=== PATIENT | female | born 1970 | race Caucasian/White ===

== ENCOUNTER 2017-12-02 01:06 | Emergency (ER) | payer MEDICAID ==
[~2017-12-02] VITALS: Ht 160 cm; Wt 95.0 kg
[2017-12-02 03:16] LABS: BASOPHILS % 0.7 % (0.0-2.0); CHLORIDE 102 mEq/L (98-107); EOSINOPHILS % 2.8 % (0.0-5.0); HEMATOCRIT. 35.4 % (36.0-48.0); HEMOGLOBIN. 11.4 g/dL (12.0-16.0); LYMPHOCYTES % 24.9 % (20.0-50.0); MEAN CORPUSCULAR HEMOGLOBIN 26.2 pg (28.0-32.0); MEAN CORPUSCULAR VOLUME 81.4 fL (81.0-99.0); MEAN PLATELET VOLUME 8.9 fl (7.4-10.4); MONOCYTES % 6.3 % (2.0-8.0); NEUTROPHILS % 65.3 % (40.0-76.0); PLATELET 383 x1000/uL (130-400); RED BLOOD CELL COUNT 4.35 mill/uL (4.2-5.4); RED CELL DISTRIBUTION WIDTH 17.2 % (11.6-14.6)
[2017-12-02 03:20] LABS: PROTHROMBIN TIME 10.2 sec (9.1-11.1)
[2017-12-02] MEDS ORDERED: MAGNESIUM/ALUMINUM HYDROXIDE/SIMETHICONE 30ML UDC PO ONE (03:30)
[2017-12-02] MEDS ORDERED: ONDANSETRON HCL 4MG/2ML VIAL IV ONE (03:30)
[2017-12-02] MEDS ORDERED: FAMOTIDINE 20MG/2ML VIAL IV ONE (03:30)
[2017-12-02] MEDS ORDERED: SODIUM CHLORIDE 0.9% 1,000 ML IV ONE (03:30)
[2017-12-02 05:05] LABS: CLARITY URINE CLEAR (CLEAR); COLOR URINE YELLOW (YELLOW); KETONES URINE NEGATIVE (NEGATIVE); LEUKOCYTE ESTERASE URINE NEGATIVE (NEGATIVE); NITRITE URINE NEGATIVE (NEGATIVE); OCCULT BLOOD URINE NEGATIVE (NEGATIVE); PH URINE 8.5 (4.5-8.0); PROTEIN URINE NEGATIVE (NEGATIVE); SPECIFIC GRAVITY URINE 1.021 (1.005-1.030)
[2017-12-02 06:00] VITALS: BP 155/86
== END 2017-12-02 06:25 | disposition home or self-care (01) ==
LOC: ER 01:06
DX: R10.13 Epigastric pain (principal); I10 Essential (primary) hypertension; Z90.49 Acquired absence of other specified parts of digestive tract
CPT/HCPCS: 36415; 80053; 81003; 81025; 83690; 85025; 85610; 96374; 96375; 99284; J2405; J3490; J7030

== ENCOUNTER 2023-02-04 18:08 | Emergency (ER) | payer MEDICAID ==
[~2023-02-04] VITALS: Ht 167.6 cm; Wt 81.0 kg
[~2023-02-04 18:08] MED LIST: TOPUD PO
[2023-02-04 18:11] VITALS: O2SAT 99
[2023-02-04] MEDS ORDERED: SODIUM CHLORIDE 0.9% 1,000 ML IV NR (19:00)
[2023-02-04] MEDS ORDERED: FAMOTIDINE 20MG/2ML VIAL IV NR (19:00)
[2023-02-04] MEDS ORDERED: MELOXICAM 7.5MG TABLET PO NR (19:00)
[2023-02-04] MEDS ORDERED: ONDANSETRON HCL 4MG/2ML INJ IM NR (19:15)
[2023-02-04 20:00] LABS: BASOPHILS % 0.6 % (0.0-2.0); EOSINOPHILS % 4.5 % (0.0-5.0); HEMATOCRIT. 32.3 % (36.0-48.0); HEMOGLOBIN. 10.5 g/dL (12.0-16.0); LYMPHOCYTES % 19.3 % (20.0-50.0); MEAN CORPUSCULAR HEMOGLOBIN 27.1 pg (28.0-32.0); MEAN CORPUSCULAR HGB CONC 32.6 g/dL (31.0-37.0); MEAN PLATELET VOLUME 7.3 fl (7.4-10.4); MONOCYTES % 6.2 % (2.0-8.0); NEUTROPHILS % 69.4 % (40.0-76.0); PLATELET 400 x1000/uL (130-400); RED BLOOD CELL COUNT 3.89 mill/uL (4.2-5.4); RED CELL DISTRIBUTION WIDTH 14.6 % (11.6-14.6)
[2023-02-04 20:03] LABS: CLARITY URINE CLEAR (CLEAR); COLOR URINE YELLOW (YELLOW); GLUCOSE URINE NEGATIVE (NEGATIVE); KETONES URINE NEGATIVE (NEGATIVE); LEUKOCYTE ESTERASE URINE NEGATIVE (NEGATIVE); NITRITE URINE NEGATIVE (NEGATIVE); OCCULT BLOOD URINE NEGATIVE (NEGATIVE); PH URINE 6.5 (4.5-8.0); PROTEIN URINE NEGATIVE (NEGATIVE); SPECIFIC GRAVITY URINE 1.005 (1.005-1.030); UROBILINOGEN URINE 0.2 E.U./dL (0.2-1.0)
[2023-02-04 20:11] LABS: CHLORIDE 108 mEq/L (98-107); INDEX HEMOLYSI 1 (1-3); INDEX ICTERIC 1 (1-4); INDEX LIPEMIC 1 (1-3); POTASSIUM 3.9 mEq/L (3.5-5.1); SODIUM 138 mEq/L (136-145)
[2023-02-04 20:23] LABS: ALANINE AMINOTRANSFERASE 37 IU/L (13-61); ALBUMIN 3.5 g/dL (3.4-5.0); ASPARTATE AMINOTRANSFERASE 19 IU/L (15-37); BILIRUBIN TOTAL 0.3 mg/dL (0.1-1.0); CALCIUM 8.7 mg/dL (8.5-10.1); CARBON DIOXIDE 26 mEq/L (21-32); CREATININE 0.7 mg/dL (0.6-1.3); ETHANOL BLOOD < 10 mg/dL (<10); GLUCOSE 102 mg/dL (70-105); PROTEIN TOTAL 8.2 g/dL (6.0-8.3); UREA NITROGEN BLOOD 10 mg/dL (7-21)
[2023-02-04 20:23] LABS: *AMPHETAMINES SCREEN URINE NEGATIVE (NEGATIVE); *BARBITURATES SCREEN URINE NEGATIVE (NEGATIVE); *BENZODIAZEPINES SCREEN URINE NEGATIVE (NEGATIVE); *COCAINE SCREEN URINE NEGATIVE (NEGATIVE); CANNABINOID URINE SCREEN NEGATIVE (NEGATIVE); ECSTASY MDMA SCREEN URINE NEGATIVE (NEGATIVE); OPIATES URINE SCREEN NEGATIVE (NEGATIVE); PHENCYCLIDINE URINE SCREEN NEGATIVE (NEGATIVE)
[2023-02-05 00:31] VITALS: BP 125/74; PULSE 98; RESP 16; TEMP 97.5
== END 2023-02-05 00:33 | disposition home or self-care (01) ==
LOC: ER 18:08
DX: M54.50 Low back pain, unspecified (principal); R42 Dizziness and giddiness; R11.0 Nausea; E11.9 Type 2 diabetes mellitus without complications; K21.9 Gastro-esophageal reflux disease without esophagitis; I10 Essential (primary) hypertension; M79.7 Fibromyalgia; Z90.49 Acquired absence of other specified parts of digestive tract
CPT/HCPCS: 80053; 80305; 81003; 80320; 83690; 85025; 36415; 70450; 74176; 96360; 96372; 99285; J3490; J2405; G0480